=== PATIENT | male | born 1990 | race Caucasian/White ===

== ENCOUNTER 2018-03-23 19:17 | Emergency (ER) | payer OTHER, BC, MEDICAID, SELFPAY ==
[2018-03-23] MEDS: LIDOCAINE W/EPINEPHRINE 1% 20ML VIAL SC (23:54)
[2018-03-24] MEDS: BACTRIM 160MG/800MG DS TAB PO (00:45)
== END 2018-03-24 01:30 | disposition home or self-care (01) ==
LOC: M ED 03-24 01:30
DX: L02.31 Cutaneous abscess of buttock (principal); Z79.899 Other long term (current) drug therapy
CPT/HCPCS: 87186

== ENCOUNTER 2018-11-02 20:59 | Emergency (ER) | payer MEDICAID, OTHER ==
[~2018-11-02] VITALS: Ht 175.3 cm; Wt 61.4 kg
[~2018-11-02 20:59] MED LIST: BACT800T5 PO; DOXY100C37 PO; FLUO20CA19; KLON0.5T
[2018-11-02 21:00] VITALS: BP 135/81
[2018-11-02] MEDS ORDERED: LEVO25TA5 PO (21:08)
[2018-11-02] MEDS ORDERED: ONDANSETRON 4 MG ORAL DISINTEGRATING TAB (Q0162 PER 1MG) PO ONE (22:00)
[2018-11-02 22:02] LABS: BASO # 0.1 10^3/uL (0.0-0.2); BASO % 0.8 % (0.0-1.0); EOS # 0.1 10^3/uL (0.0-0.50); EOS % 0.9 % (0.0-3.0); HEMATOCRIT 47.1 % (42.0-52.0); HEMOGLOBIN 15.8 g/dl (13.5-17.5); LYMPH # 1.8 10^3/uL (1.5-6.5); MEAN CORPUSCULAR HGB CONC 33.5 g/dl (32.0-36.5); MEAN CORPUSCULAR VOLUME 89.5 fl (80.0-96.0); MONO # 0.6 10^3/uL (0.0-0.8); MONO % 5.7 % (0.0-5.0); NEUTROPHILS # 7.8 10^3/uL (1.8-7.7); NEUTROPHILS % 75.2 % (36.0-66.0); PLATELET COUNT, AUTOMATED 334 10^3/uL (150-450); RED BLOOD COUNT 5.26 10^6/uL (4.30-6.10); WHITE BLOOD COUNT 10.4 10^3/uL (4.0-10.0)
[2018-11-02 22:04] LABS: BLOOD UREA NITROGEN 18 MG/DL (7-18); CALCIUM LEVEL 9.3 MG/DL (8.5-10.1); CARBON DIOXIDE LEVEL 28 MEQ/L (21-32); CHLORIDE LEVEL 104 MEQ/L (98-107); CREATININE FOR GFR 0.94 MG/DL (0.70-1.30); GLOMERULAR FILTRATION RATE > 60.0 (>60); GLUCOSE, FASTING 95 MG/DL (70-100); POTASSIUM SERUM 4.3 MEQ/L (3.5-5.1); SODIUM LEVEL 139 MEQ/L (136-145)
== END 2018-11-02 22:38 | disposition home or self-care (01) ==
LOC: M ED 20:59
DX: F41.9 Anxiety disorder, unspecified (principal); R53.83 Other fatigue; R94.6 Abnormal results of thyroid function studies; R11.0 Nausea; E03.9 Hypothyroidism, unspecified; Z79.899 Other long term (current) drug therapy
CPT/HCPCS: 80048; 84443; 85025; 99283; Q0162

== ENCOUNTER → 2018-12-11 | Outpatient (REF) | payer OTHER, MEDICAID ==
[~2018-12-11] MED LIST changes: +LEVO25TA5 PO
[2018-12-11 13:34] LABS: FREE T4 0.99 NG/DL (0.76-1.46); THYROID PEROXIDASE ANTIBODY 43.5 U/ML (<60.0); THYROID STIMULATING HORMONE 7.14 uIU/ML (0.358-3.740)
== END ==
LOC: M LABDRAW1 12:37
PROVIDERS: ATTEND Nurse Practitioner Family
DX: E03.9 Hypothyroidism, unspecified (principal)

== ENCOUNTER → 2019-02-06 | Outpatient (CLI) | payer OTHER, MEDICAID ==
[2019-02-06 20:00] LABS: FREE T4 1.3 NG/DL (0.76-1.46); THYROID STIMULATING HORMONE 0.581 uIU/ML (0.358-3.740)
== END ==
LOC: M SMT 14:49
PROVIDERS: ATTEND Nurse Practitioner Family
DX: E03.9 Hypothyroidism, unspecified (principal)

== ENCOUNTER → 2019-06-14 | Outpatient (CLI) | payer OTHER, MEDICAID ==
[2019-06-14 15:33] LABS: FREE T4 1.26 NG/DL (0.76-1.46); THYROID STIMULATING HORMONE 1.22 uIU/ML (0.358-3.740)
== END ==
LOC: M LAB 14:22
PROVIDERS: ATTEND Nurse Practitioner Family
DX: E03.9 Hypothyroidism, unspecified (principal)

== ENCOUNTER 2022-02-26 08:09 | Emergency (ER) | payer MEDICAID, OTHER ==
[~2022-02-26] VITALS: Ht 175.3 cm; Wt 70.9 kg
[~2022-02-26 08:09] MED LIST changes: +DOXY-443 PO; -DOXY100C37 PO; -FLUO20CA19; +FLUO20CA22
[2022-02-26] MEDS ORDERED: LEVO75TA4 PO (08:16)
[2022-02-26 08:45] LABS: BASO % 0.4 % (0.0-1.0); EOS # 0.1 10^3/uL (0.0-0.5); EOS % 1.3 % (0.0-3.0); HEMATOCRIT 48.4 % (42.0-52.0); HEMOGLOBIN 16.4 g/dl (13.5-17.5); LYMPH # 1.8 10^3/uL (1.5-5.0); LYMPH % 23.7 % (24.0-44.0); MEAN CORPUSCULAR HGB CONC 33.9 g/dl (32.0-36.5); MEAN CORPUSCULAR VOLUME 88.5 fl (80.0-96.0); MONO # 0.6 10^3/uL (0.0-0.8); MONO % 7.4 % (2.0-8.0); NEUTROPHILS % 66.9 % (36.0-66.0); PLATELET COUNT, AUTOMATED 301 10^3/uL (150-450); RED BLOOD COUNT 5.47 10^6/uL (4.30-6.10); WHITE BLOOD COUNT 7.5 10^3/uL (4.0-10.0)
[2022-02-26 09:20] LABS: ALBUMIN 3.8 GM/DL (3.2-5.2); ALT/SGPT 25 U/L (12-78); BILIRUBIN,DIRECT 0.2 MG/DL (0.0-0.2); BILIRUBIN,TOTAL 0.9 MG/DL (0.2-1.0); BLOOD UREA NITROGEN 13 MG/DL (7-18); CALCIUM LEVEL 9.8 MG/DL (8.5-10.1); CARBON DIOXIDE LEVEL 27 MEQ/L (21-32); CHLORIDE LEVEL 104 MEQ/L (98-107); CREATININE FOR GFR 1.17 MG/DL (0.70-1.30); GLOMERULAR FILTRATION RATE > 60.0 (>60); GLUCOSE, FASTING 98 MG/DL (70-100); LIPASE 71 U/L (73-393); POTASSIUM SERUM 4.4 MEQ/L (3.5-5.1); SODIUM LEVEL 139 MEQ/L (136-145); TOTAL PROTEIN 7.7 GM/DL (6.4-8.2)
[2022-02-26] MEDS ORDERED: ISOVUE-370 76% 100ML VIAL As Ordered ONE (12:11)
[2022-02-26 14:06] VITALS: BP 158/87
[2022-02-26 14:50] LABS: FREE T4 1.1 NG/DL (0.76-1.46); THYROID STIMULATING HORMONE 1.83 uIU/ML (0.358-3.740)
== END 2022-02-26 14:08 | disposition home or self-care (01) ==
LOC: M ED 08:09
DX: R19.4 Change in bowel habit (principal); R19.7 Diarrhea, unspecified; E03.9 Hypothyroidism, unspecified; Z87.442 Personal history of urinary calculi
CPT/HCPCS: 36415; 74177; 80048; 80076; 83690; 84439; 84443; 85025; 87507; 99284; Q9967

== ENCOUNTER → 2022-04-16 | Outpatient (CLI) | payer OTHER ==
[~2022-04-16] MED LIST changes: +LEVO75TA4 PO
== END ==
LOC: M LAB 11:55
PROVIDERS: ATTEND Nurse Practitioner Adult Health
DX: K58.0 Irritable bowel syndrome with diarrhea (principal)

== ENCOUNTER → 2023-01-05 | Outpatient (CLI) | payer OTHER ==
[2023-01-05 16:17] LABS: ALBUMIN 3.8 G/DL (3.2-5.2); ALKALINE PHOSPHATASE 99 U/L (46-116); ALT/SGPT 17 U/L (7.0-40); AST/SGOT 17 U/L (<34); BILIRUBIN,TOTAL 0.7 MG/DL (0.3-1.2); BLOOD UREA NITROGEN 10 MG/DL (9-23); CARBON DIOXIDE LEVEL 29 MMOL/L (20-31); CHLORIDE LEVEL 102 MMOL/L (98-107); CREATININE FOR GFR 0.96 MG/DL (0.70-1.30); GLOMERULAR FILTRATION RATE > 60.0 (>60); GLUCOSE, FASTING 74 MG/DL (60-100); POTASSIUM SERUM 4.4 MMOL/L (3.5-5.1); SODIUM LEVEL 138 MMOL/L (136-145); THYROID STIMULATING HORMONE 1.553 uIU/ML (0.55-4.78); TOTAL PROTEIN 6.8 G/DL (5.7-8.2)
== END ==
LOC: M PLALAB 12:19
PROVIDERS: ATTEND Nurse Practitioner Adult Health
DX: E03.9 Hypothyroidism, unspecified (principal)

== ENCOUNTER → 2023-10-04 | Outpatient (CLI) | payer OTHER ==
[2023-10-04 14:22] LABS: ALBUMIN 3.8 G/DL (3.2-5.2); ALKALINE PHOSPHATASE 93 U/L (46-116); ALT/SGPT 13 U/L (7.0-40); AST/SGOT 14 U/L (<34); BILIRUBIN,TOTAL 0.8 MG/DL (0.3-1.2); BLOOD UREA NITROGEN 8 MG/DL (9-23); CALCIUM LEVEL 9.4 MG/DL (8.5-10.1); CARBON DIOXIDE LEVEL 28 MMOL/L (20-31); CHLORIDE LEVEL 106 MMOL/L (98-107); CHOLESTEROL LEVEL 255 MG/DL (<200); CHOLESTEROL RISK RATIO 6.26 (<5); CREATININE FOR GFR 0.97 MG/DL (0.70-1.30); GLOMERULAR FILTRATION RATE > 60.0 (>60); GLUCOSE, FASTING 90 MG/DL (60-100); HDL CHOLESTEROL 40.7 MG/DL (>40); LDL CHOLESTEROL 177.9 MG/DL (<100); NON-HDL-C 214.3 MG/DL; SODIUM LEVEL 135 MMOL/L (136-145); THYROID STIMULATING HORMONE 3.112 uIU/ML (0.55-4.78); TOTAL PROTEIN 6.7 G/DL (5.7-8.2); TRIGLYCERIDES LEVEL 182 MG/DL (<150)
== END ==
LOC: M PLALAB 10:11
PROVIDERS: ATTEND Nurse Practitioner Adult Health
DX: Z00.00 Encounter for general adult medical examination without abnormal findings (principal); E03.9 Hypothyroidism, unspecified; E78.00 Pure hypercholesterolemia, unspecified

== ENCOUNTER → 2024-04-03 | Outpatient (CLI) | payer OTHER ==
[~2024-04-03] MED LIST changes: +DOXY-323 PO; -DOXY-443 PO; +FLUO-365; -FLUO20CA22; -KLON0.5T; +KLON0.5T8
[2024-04-03 15:20] LABS: ALBUMIN 3.9 G/DL (3.2-5.2); ALKALINE PHOSPHATASE 104 U/L (46-116); ALT/SGPT 14 U/L (7.0-40); AST/SGOT 11 U/L (<34); BILIRUBIN,TOTAL 0.8 MG/DL (0.3-1.2); BLOOD UREA NITROGEN 13 MG/DL (9-23); CALCIUM LEVEL 9.4 MG/DL (8.5-10.1); CARBON DIOXIDE LEVEL 27 MMOL/L (20-31); CHLORIDE LEVEL 106 MMOL/L (98-107); CHOLESTEROL LEVEL 263 MG/DL (<200); CHOLESTEROL RISK RATIO 6.04 (<5); CREATININE FOR GFR 1.08 MG/DL (0.70-1.30); GLOMERULAR FILTRATION RATE > 60.0 (>60); GLUCOSE, FASTING 89 MG/DL (60-100); HDL CHOLESTEROL 43.5 MG/DL (>40); LDL CHOLESTEROL 188.5 MG/DL (<100); NON-HDL-C 219.5 MG/DL; POTASSIUM SERUM 4.3 MMOL/L (3.5-5.1); SODIUM LEVEL 140 MMOL/L (136-145); TOTAL PROTEIN 7.1 G/DL (5.7-8.2); TRIGLYCERIDES LEVEL 155 MG/DL (<150)
[2024-04-03 15:23] LABS: THYROID STIMULATING HORMONE 3.611 uIU/ML (0.55-4.78)
== END ==
LOC: M PLALAB 12:50
PROVIDERS: ATTEND Nurse Practitioner Adult Health
DX: E03.9 Hypothyroidism, unspecified (principal); E78.00 Pure hypercholesterolemia, unspecified; K58.0 Irritable bowel syndrome with diarrhea

== ENCOUNTER 2024-06-18 01:08 | Observation (INO) | payer MEDICAID, OTHER ==
[~2024-06-18] VITALS: Ht 175.3 cm; Wt 68.8 kg
[2024-06-18] MEDS: NS 1,000 ML IV ONE (05:15)
[2024-06-18 05:25] LABS: VENOUS BASE EXCESS -1.7 (-2.0-2.0); VENOUS HCO3 22.8 MMOL/L (23.0-27.0); VENOUS PARTIAL PRESSURE CO2 38.4 mmHg (38.0-50.0); VENOUS PARTIAL PRESSURE O2 46.2 mmHg (30.0-50.0); VENOUS PH 7.392 UNITS (7.330-7.430); VENOUS STANDARD HCO3 22.7 MMOL/L
[2024-06-18 05:33] LABS: BASO % 0.2 % (0.0-1.0); EOS % 0.1 % (0.0-3.0); HEMATOCRIT 46.9 % (42.0-52.0); HEMOGLOBIN 15.9 g/dl (13.5-17.5); LYMPH # 1.4 10^3/uL (1.5-5.0); LYMPH % 7.2 % (24.0-44.0); MEAN CORPUSCULAR HEMOGLOBIN 29.6 pg (27.0-33.0); MEAN CORPUSCULAR HGB CONC 33.9 g/dl (32.0-36.5); MEAN CORPUSCULAR VOLUME 87.2 fl (80.0-96.0); MONO # 0.6 10^3/uL (0.0-0.8); MONO % 3.3 % (2.0-8.0); NEUTROPHILS % 88.9 % (36.0-66.0); PLATELET COUNT, AUTOMATED 352 10^3/uL (150-450); RED BLOOD COUNT 5.38 10^6/uL (4.30-6.10); WHITE BLOOD COUNT 19.1 10^3/uL (4.0-10.0)
[2024-06-18 06:00] LABS: CK-MB VALUE MASS < 1.0 NG/ML (<3.6); ETHYL ALCOHOL (ETHANOL) 0.005 % (0.000-0.010)
[2024-06-18] MEDS: LEVOTHYROXINE 75MCG TABLET (0.075MG) PO SCH (06:00)
[2024-06-18 06:04] LABS: FREE T4 1.37 NG/DL (0.89-1.76); THYROID STIMULATING HORMONE 2.465 uIU/ML (0.55-4.78)
[2024-06-18] MEDS ORDERED: ISOVUE-370 76% 100ML VIAL As Ordered ONE (06:12)
[2024-06-18 06:18] LABS: BLOOD UREA NITROGEN 12 MG/DL (9-23); CALCIUM LEVEL 9.3 MG/DL (8.5-10.1); CARBON DIOXIDE LEVEL 24 MMOL/L (20-31); CHLORIDE LEVEL 107 MMOL/L (98-107); CREATININE FOR GFR 0.99 MG/DL (0.70-1.30); GLOMERULAR FILTRATION RATE > 60.0 (>60); GLUCOSE, FASTING 122 MG/DL (60-100); MAGNESIUM LEVEL 2.1 MG/DL (1.8-2.4); POTASSIUM SERUM 4.1 MMOL/L (3.5-5.1); SODIUM LEVEL 137 MMOL/L (136-145)
[2024-06-18 06:20] LABS: CPK CREATINE PHOSPHOKINASE 305 U/L (46-171); MB/CK RELATIVE INDEX 0.32 (< OR =4)
[2024-06-18 06:29] LABS: INR 1.06; PARTIAL THROMBOPLASTIN TIME 27.8 SECONDS (24.8-34.2); PROTHROMBIN TIME 13.5 SECONDS (12.5-14.5)
[2024-06-18 08:45] LABS: AMPHETAMINES LEVEL URINE NEGATIVE (NEGATIVE); BARBITURATES URINE NEGATIVE (NEGATIVE); BENZODIAZEPINES URINE NEGATIVE (NEGATIVE); CANNABINOIDS URINE NEGATIVE (NEGATIVE); COCAINE METABOLITE URINE NEGATIVE (NEGATIVE); METHADONE URINE NEGATIVE (NEGATIVE); OPIATES URINE NEGATIVE (NEGATIVE); PHENCYCLIDINE URINE NEGATIVE (NEGATIVE)
[2024-06-18] MEDS ORDERED: HOME MED LIST COMPLETE! XX SCH (09:35)
[2024-06-18] MEDS ORDERED: ACETAMINOPHEN TAB 650MG DOSE (2X325MG) PO PRN (12:10)
[2024-06-18] MEDS ORDERED: MOM 30ML SUSPENSION UDC PO PRN (12:10)
[2024-06-18] MEDS ORDERED: MAALOX 30 ML SUSP *UDC PO PRN (12:10)
[2024-06-18] MEDS ORDERED: ALPRAZolam 0.25 MG TAB PO PRN (12:15)
[2024-06-18 15:43] VITALS: BP 137/88; TEMP 98.8; O2SAT 96
[2024-06-18 19:43] VITALS: BP 131/84; TEMP 98.4; O2SAT 99
[2024-06-18 23:25] VITALS: BP 143/82; TEMP 97.1; O2SAT 100
[2024-06-19 03:19] VITALS: BP 138/88; TEMP 98; O2SAT 99
[2024-06-19 04:53] LABS: HEMATOCRIT 41.1 % (42.0-52.0); MEAN CORPUSCULAR HEMOGLOBIN 29.9 pg (27.0-33.0); MEAN CORPUSCULAR HGB CONC 33.6 g/dl (32.0-36.5); MEAN CORPUSCULAR VOLUME 89.2 fl (80.0-96.0); PLATELET COUNT, AUTOMATED 268 10^3/uL (150-450); RED BLOOD COUNT 4.61 10^6/uL (4.30-6.10)
[2024-06-19 04:59] LABS: HEMOGLOBIN 13.8 g/dl (13.5-17.5)
[2024-06-19 05:18] LABS: BLOOD UREA NITROGEN 7 MG/DL (9-23); CALCIUM LEVEL 9.1 MG/DL (8.5-10.1); CARBON DIOXIDE LEVEL 27 MMOL/L (20-31); CHLORIDE LEVEL 110 MMOL/L (98-107); CREATININE FOR GFR 0.98 MG/DL (0.70-1.30); GLOMERULAR FILTRATION RATE > 60.0 (>60); GLUCOSE, FASTING 100 MG/DL (60-100); MAGNESIUM LEVEL 2.2 MG/DL (1.8-2.4); SODIUM LEVEL 141 MMOL/L (136-145)
[2024-06-19 06:31] VITALS: BP 127/86; TEMP 98.2; O2SAT 99
[2024-06-19 07:42] VITALS: BP 133/94; TEMP 97.6; O2SAT 100
[2024-06-19] MEDS: ENOXAPARIN 40MG/0.4ML SYRINGE (J1650 PER 10MG) SC SCH (09:00)
== END 2024-06-19 11:56 | disposition home or self-care (01) ==
LOC: M ED 01:08 → M ED INP 01:09 → EEVIPCON 01:09 → M PCU 15:24
PROVIDERS: ADMIT Student in an Organized Health Care Education/Training Program; ATTEND Student in an Organized Health Care Education/Training Program
DX: R55 Syncope and collapse (principal); R00.0 Tachycardia, unspecified; E03.9 Hypothyroidism, unspecified; F41.9 Anxiety disorder, unspecified; F42.9 Obsessive-compulsive disorder, unspecified
CPT/HCPCS: 36415; 70450; 71045; 71275; 80048; 80307; 82077; 82550; 82553; 82803; 83605; 83735; 84439; 84443; 84484; 85025; 85027; 85610; 85730; 87486; 87581; 87633; 87798; 93005; 93041; 93306; 94760; 96374; 99285; Q9967

== ENCOUNTER → 2024-06-19 | Outpatient (CLI) | payer OTHER | LOC: M EKG 12:06 | PROVIDERS: ATTEND General Practice | DX: R55 Syncope and collapse (principal) ==

== ENCOUNTER → 2025-04-30 | Outpatient (CLI) | payer OTHER ==
[~2025-04-30] MED LIST changes: -DOXY-323 PO; +DOXY-441 PO
[2025-04-30 16:09] LABS: FREE T4 1.68 NG/DL (0.89-1.76)
[2025-04-30 16:12] LABS: ALT/SGPT 14 U/L (7.0-40); AST/SGOT 16 U/L (<34); CALCIUM LEVEL 9.5 MG/DL (8.5-10.1); CARBON DIOXIDE LEVEL 27 MMOL/L (20-31); CHLORIDE LEVEL 102 MMOL/L (98-107); CHOLESTEROL LEVEL 308 MG/DL (<200); CHOLESTEROL RISK RATIO 6.56 (<5); CREATININE FOR GFR 1.03 MG/DL (0.70-1.30); GLOMERULAR FILTRATION RATE > 90.0 (>60); LDL CHOLESTEROL 239.7 MG/DL (<100); NON-HDL-C 261.1 MG/DL; POTASSIUM SERUM 4.0 MMOL/L (3.5-5.1); SODIUM LEVEL 139 MMOL/L (136-145); TRIGLYCERIDES LEVEL 107 MG/DL (<150)
== END ==
LOC: M PLALAB 13:51
PROVIDERS: ATTEND Nurse Practitioner Adult Health
DX: K58.0 Irritable bowel syndrome with diarrhea (principal); E78.00 Pure hypercholesterolemia, unspecified; E03.9 Hypothyroidism, unspecified